=== PATIENT | male | born 1995 | race Caucasian/White ===

== ENCOUNTER 2019-02-08 22:06 | Emergency (ER) | payer OTHER ==
[~2019-02-08] VITALS: Ht 172.7 cm; Wt 84.1 kg
[2019-02-08] MEDS ORDERED: DELT1TAB PO (22:11)
[2019-02-08] MEDS ORDERED: CELE50CA PO (23:03)
[2019-02-08] MEDS ORDERED: CYCL10TA PO (23:03)
[2019-02-08] MEDS ORDERED: OMEP10CASR PO (23:05)
[2019-02-08] MEDS ORDERED: ACET1TAB55 PO (23:05)
[2019-02-09 00:34] VITALS: BP 152/88
== END 2019-02-09 00:38 | disposition home or self-care (01) ==
LOC: M ED 22:06
DX: L50.9 Urticaria, unspecified (principal); M54.9 Dorsalgia, unspecified; F17.220 Nicotine dependence, chewing tobacco, uncomplicated; Z88.0 Allergy status to penicillin